=== PATIENT | female | born 1990 | race Caucasian/White ===

== ENCOUNTER 2018-09-13 11:39 | Emergency (ER) | payer MEDICAID ==
[~2018-09-13] VITALS: Ht 162.6 cm; Wt 68.0 kg
[2018-09-13] MEDS ORDERED: PENICILLIN G BENZATHINE 2.4 MMU/4 ML DISP.SYRIN IM ONE (12:00)
[2018-09-13 12:02] VITALS: BP 106/67
--- NOTE | 2018-09-13 12:03 | NUR ---
Patient discharged to home in stable conditon. Written and verbal after care instructions given. Patient verbalizes understanding of instructions.
== END 2018-09-13 12:09 | disposition home or self-care (01) ==
LOC: ER 11:39
DX: J02.0 Streptococcal pharyngitis (principal)
CPT/HCPCS: A4663